=== PATIENT | male | born 2000 | race Caucasian/White ===

== ENCOUNTER 2024-01-31 10:22 | Outpatient (REF) | payer BC, SELFPAY ==
[2024-01-31 17:01] LABS: CT PCR NOT DETECTED (Not Detect.); NG PCR NOT DETECTED (Not Detect.)
== END 2024-01-31 10:23 | disposition home or self-care (01) ==
LOC: HO.LNP 10:22
PROVIDERS: PCP Physician Assistant; Visit Provider Physician Assistant
DX: Z00.00 Encounter for general adult medical examination without abnormal findings (principal); Z13.39 Encounter for screening examination for other mental health and behavioral disorders; Z20.2 Contact with and (suspected) exposure to infections with a predominantly sexual mode of transmission
CPT/HCPCS: 87491; 87591; 96127

== ENCOUNTER 2024-01-31 10:22 | Outpatient (AMB) | payer BC, SELFPAY ==
--- NOTE | 2024-01-31 10:07 | MHC.PC.OV ---
Vital Signs 01/31/24 10:32 Height 6 ft 0.05 in Weight 232 lb 4 oz BMI 31.5 BP 126/68 Blood Pressure Location Rt brachial Position Sitting Respiration 16 Pulse 87 Pulse Source Pulse Oximeter Temp 98.2 F Temp Source Oral Pulse Oximetry (%) 97 Oxygen Delivery Method Room Air Intake Visit Reasons: Establish Care Intake Note: New patient visit Floor Polisher Required: No Allergies No Known Allergies Allergy (Verified 01/31/24 10:30) Medication List - Last Reconciled 01/31/24 by Leticia Coto PA-C No Known Home Meds Tobacco use date assessed: 01/31/24 Dental Screening Dental Screen Date: 01/31/24 Did you have a dental visit in the last 12 months?: Yes Did you have a dental problem in the last 6 months where you did not have access to dental care?: No Was dental information given to patient?: Patient has dentist HPI Establish Care HPI Details Patient is a 23-year-old male who presents today to establish care. He was last seen by pediatrics 4 years ago. He denies any significant pmhx. He states he does not take medications. He does request STD screening. He is asymptomatic. 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 [employer] Social History (Updated 01/31/24 @ 10:10 by Kellie Elizabeth CMA) Housing: House Patient Tobacco Use Status: Current everyday Tobacco user (Tobacco pouches) e-Cigarette/Vaping Use: Never Used Second Hand Smoke Exposure: No service: No Current occupational status: employed Current occupation: [employer] Current occupational exposures/hazards: No Cognitive needs: No Hearing needs: No Vision needs: Yes (contact lenses) Questionnaire Thrive Questionnaire Date Thrive assessed: 01/31/24 I am a: Patient What is your living situation today?: I have a steady place to live Within the past 12 months, did the food you bought not last and you didn't have the money to get more?: Never true Within the past 12 months, did you worry whether your food would run out before you got money to buy more?: Never true Do you have trouble paying for medicines?: No Do you have trouble getting transportation to medical appointments?: No Do you have trouble paying your heating and electricity bill?: No Do you have trouble taking care of your child, family member or friend?: No Do you have trouble with day-to-day activities such as bathing, preparing meals, shopping, managing finances, etc.?: No Are you currently unemployed and looking for a job?: No Are you interested in more education?: Yes Please select the resources that you would like help with: None Currently or been in a relationship where the following occur: No concerns reported THRIVE Score: 0 AUDIT C Alcohol Use Questionnaire (AUDIT-C) 1. How often do you have a drink containing alcohol?: 2-3 times a week 2. How many drinks containing alcohol do you have on a typical day when you are drinking?: 1 or 2 3. How often do you have six or more drinks on one occasion?: Less than monthly Total Score: 4 JOAQUIN-7 AMB Questionnaire JOAQUIN-7 Date JOAQUIN - 7 assessed: 01/31/24 Feeling nervous, anxious, or on edge: 0 = Not at all Not being able to stop or control worryin = Not at all Worrying too much about different things: 0 = Not at all Trouble relaxin = Not at all Being so restless that it is hard to sit still: 0 = Not at all Feeling afraid as if something awful might happen: 0 = Not at all Source: Developed by Drs. Freddie Gaffney, Stephany Carbajal, Deonte Maurer and colleagues, with an educational nicho from [employer]. JOAQUIN-7 Assessment Billing JOAQUIN-7 Assessment Tool: JOAQUIN-7 Assessment 25569 Physical exam (Primary Care) Vital Signs: Last Vital Signs Temp 98.2 F 01/31/24 10:32 Pulse 87 01/31/24 10:32 Resp 16 01/31/24 10:32 BP 126/68 01/31/24 10:32 Pulse Ox 97 01/31/24 10:32 Oxygen Delivery Method Room Air 01/31/24 10:32 BMI result Body Mass Index 31.5 Tobacco/Smoking Status: Tobacco use Status Tobacco use date assessed 01/31/24 01/31/24 10:11 Patient Tobacco Use Status Never used Tobacco 01/31/24 10:11 e-Cigarette/Vaping Use Never Used 01/31/24 10:11 Thrive Assessment: Date of Thrive Assessment Date Thrive assessed 10/09/24 10/09/24 10:11 Currently or been in a relationship where the following occur: No concerns reported Const Orientation/consciousness: patient oriented x3 HENMT Ears: hearing grossly normal bilaterally and TM's normal bilaterally General nose exam: No nasal polyps present Face and sinus: Yes sinuses nontender Mouth: Normal oral and palatal mucosa present Eyes Pupils: Equal, round and reactive pupils present EOM: EOMs intact bilaterally Neck Neck: Yes full ROM and Yes no lymphadenopathy Thyroid: Thyroid normal Chest Chest palpation & inspection: normal inspection of the chest Resp Auscultation: clear to auscultation bilaterally Cardio Rate: regular rate Rhythm: regular rhythm Heart sounds: S1 normal heart sound present and S2 normal heart sound present Peripheral pulses: Peripheral pulses 2+ throughout GI Other: Soft, nontender Auscultation: normal bowel sounds Rectal Exam - Male: Yes deferred General: Yes no CVA tenderness Back/Spine/Pelvis Other: Nontender Back: no CVA tenderness Skin General skin exam: no rashes or lesions noted Neuro General: patient oriented x3, gait normal, CN's II-XI intact bilaterally and deep tendon reflexes 2+ bilaterally Cranial nerves: Yes Equal, round and reactive pupils present Motor exam (neuro): 5/5 motor strength present throughout Sensory Exam: double simultaneous stimulation for sensation normal Coordination: [id number] test normal and Romberg test negative Extrem General: Yes normal to inspection and Yes full ROM Psych Affect: normal affect Attitude: cooperative Thought process: Normal thought process present Thought content: Normal thought content present Insight: Good insight present (Psych) Judgement: Good judgement present (Psych) Coding Level of Care Code New Pt Prev Care 18-39yr(03626 Diagnoses Routine general medical examination at a health care facility Z00.00 Additional Codes JOAQUIN-7 Assessment Billing - JOAQUIN-7 Assessment Tool: JOAQUIN-7 Assessment 06631 ([id number]) Assessment & Plan Assessment & Plan (1) Routine general medical examination at a health care facility: Code(s): Z00.00 - Encounter for general adult medical examination without abnormal findings Plan: hm reviewed labs ordered std testing ordered f/u prn pt understands and agrees with plan Orders: Orders Complete Blood Count Auto Diff Today Z00.00 - Encounter for general adult medical examination without abnormal findings, Z11.3 - Encounter for screening for infections with a predominantly sexual mode of transmission, Z13.220 - Encounter for screening for lipoid disorders Comprehensive [place]. Panel Fast Today Z00.00 - Encounter for general adult medical examination without abnormal findings, Z11.3 - Encounter for screening for infections with a predominantly sexual mode of transmission, Z13.220 - Encounter for screening for lipoid disorders Lipid Panel Today Z00.00 - Encounter for general adult medical examination without abnormal findings, Z11.3 - Encounter for screening for infections with a predominantly sexual mode of transmission, Z13.220 - Encounter for screening for lipoid disorders TSH reflex Free T4 Today Z00.00 - Encounter for general adult medical examination without abnormal findings, Z11.3 - Encounter for screening for infections with a predominantly sexual mode of transmission, Z13.220 - Encounter for screening for lipoid disorders HIV Ab/Ag Today Z00.00 - Encounter for general adult medical examination without abnormal findings, Z11.3 - Encounter for screening for infections with a predominantly sexual mode of transmission, Z13.220 - Encounter for screening for lipoid disorders, Z20.2 - Contact with and (suspected) exposure to infections with a predominantly sexual mode of transmission CT NG by PCR Today Z00.00 - Encounter for general adult medical examination without abnormal findings, Z11.3 - Encounter for screening for infections with a predominantly sexual mode of transmission, Z13.220 - Encounter for screening for lipoid disorders, Z20.2 - Contact with and (suspected) exposure to infections with a predominantly sexual mode of transmission Hepatitis C Antibody Today Z00.00 - Encounter for general adult medical examination without abnormal findings, Z11.3 - Encounter for screening for infections with a predominantly sexual mode of transmission, Z13.220 - Encounter for screening for lipoid disorders, Z20.2 - Contact with and (suspected) exposure to infections with a predominantly sexual mode of transmission Syphilis Screen Today Z00.00 - Encounter for general adult medical examination without abnormal findings, Z11.3 - Encounter for screening for infections with a predominantly sexual mode of transmission, Z13.220 - Encounter for screening for lipoid disorders, Z20.2 - Contact with and (suspected) exposure to infections with a predominantly sexual mode of transmission
[2024-01-31 10:32] VITALS: BP 126/68; PULSE 87; RESP 16; TEMP 36.8; O2SAT 97; BMI 31.5
== END 2024-01-31 11:00 | disposition home or self-care (01) ==
PROVIDERS: PCP Physician Assistant; Visit Provider Physician Assistant
DX: Z00.00 Encounter for general adult medical examination without abnormal findings (principal)

== ENCOUNTER 2024-07-31 10:33 | Outpatient (AMB) | payer OTHER, SELFPAY ==
--- NOTE | 2024-07-31 10:42 | MHC.PC.OV ---
Vital Signs 07/31/24 10:44 Height 6 ft 0.05 in Weight 236 lb 8 oz BMI 32.0 BP 104/74 Blood Pressure Location Rt brachial Position Sitting Respiration 16 Pulse 84 Pulse Source Pulse Oximeter Pulse Oximetry (%) 96 Oxygen Delivery Method Room Air Intake Visit Reasons: Heart issues Intake Note: Discuss heart concern. Was playing volley ball this weekend and heart rate reached 205. Was feeling fatigued. Pattern Chart Writer Required: No Allergies No Known Allergies Allergy (Verified 01/31/24 10:30) Tobacco use date assessed: 07/31/24 Dental Screening Dental Screen Date: 01/31/24 HPI Heart issues HPI Details Patient is a 24-year-old male who presents today with concerns regarding his heart. He states this weekend he was playing volleyball and his heart rate was up to 205. He states that he felt a lot of chest pressure, shortness a breath and fatigue when that happened. He states that he was wearing his Apple watch and looked at it and it had a dangerously high heart rate. He states it has never been that high before. It did come down with time and rest but states that it took a few minutes. He is concerned because his grandfather at the age of 32 from an PR. he states it just felt very weird to him and it concerned him that he was so tired for the following few hours and the next day. The fatigue was worsened with exertion. He did not lose consciousness but did feel a little lightheaded with it. No nausea. He states that he was obviously sweaty from the game but did not notice a change in this. No leg swelling. Mother had PR at age of 50, Paternal grandfather passed at 32 from an PR. 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 1. Little interest or pleasure in doing things: not at all 2. Feeling down, depressed, or hopeless: not at all 3. Trouble falling or staying asleep, or sleeping too much: not at all 4. Feeling tired or having little energy: not at all 5. Poor appetite or overeating: not at all 6. Feeling bad about yourself - or that you are a failure or have let yourself or your family down: not at all 7. Trouble concentrating on things, such as reading the newspaper or watching television: not at all 8. Moving or speaking so slowly that other people could have noticed. Or the opposite - being so fidgety or restless that you have been moving around a lot more than usual: not at all 9. Thoughts that you would be better off or of hurting yourself in some way: not at all Total score: 0 Depression Screening Interpretation: Negative Depression Screening Done: Yes 92494 - PHQ-9 Billing: Yes Source: Developed by Drs. Freddie Gaffney, Stephany Carbajal, Deonte Maurer and colleagues, with an educational nicho from [employer]. Thrive Questionnaire Date Thrive assessed: 07/31/24 I am a: Patient What is your living situation today?: I have a steady place to live Within the past 12 months, did the food you bought not last and you didn't have the money to get more?: Never true Within the past 12 months, did you worry whether your food would run out before you got money to buy more?: Never true Do you have trouble paying for medicines?: No Do you have trouble getting transportation to medical appointments?: No Do you have trouble paying your heating and electricity bill?: No Do you have trouble taking care of your child, family member or friend?: No Do you have trouble with day-to-day activities such as bathing, preparing meals, shopping, managing finances, etc.?: No Are you currently unemployed and looking for a job?: No Are you interested in more education?: No Please select the resources that you would like help with: None Currently or been in a relationship where the following occur: No concerns reported THRIVE Score: 0 AUDIT C Alcohol Use Questionnaire (AUDIT-C) 1. How often do you have a drink containing alcohol?: 2-4 times a month 2. How many drinks containing alcohol do you have on a typical day when you are drinking?: 3 or 4 3. How often do you have six or more drinks on one occasion?: Less than monthly Total Score: 4 Score Reviewed/Action Taken: Yes JOAQUIN-7 AMB Questionnaire JOAQUIN-7 Date JOAQUIN - 7 assessed: 07/31/24 Feeling nervous, anxious, or on edge: 0 = Not at all Not being able to stop or control worryin = Not at all Worrying too much about different things: 0 = Not at all Trouble relaxin = Not at all Being so restless that it is hard to sit still: 0 = Not at all Becoming easily annoyed or irritable: 0 = Not at all Feeling afraid as if something awful might happen: 0 = Not at all Total JOAQUIN-7 score (0-4 normal; 5-9 mild; 10-14 moderate; 15-21 severe): 0 Source: Developed by Drs. Freddie Gaffney, Stephany Carbajal, Deonte Maurer and colleagues, with an educational nicho from [employer]. JOAQUIN-7 Assessment Billing JOAQUIN-7 Assessment Tool: JOAQUIN-7 Assessment 43551 Physical exam (Primary Care) Vital Signs: Last Vital Signs Pulse 84 07/31/24 10:44 Resp 16 07/31/24 10:44 BP 104/74 07/31/24 10:44 Pulse Ox 96 07/31/24 10:44 Oxygen Delivery Method Room Air 07/31/24 10:44 BMI result Body Mass Index 32.0 Tobacco/Smoking Status: Tobacco use Status Tobacco use date assessed 07/31/24 07/31/24 10:59 Patient Tobacco Use Status Current everyday Tobacco ( 07/31/24 10:58 Tobacco pouches) e-Cigarette/Vaping Use Never Used 07/31/24 10:58 PHQ-9: PHQ-9 Score PHQ-9: Total score 0 07/31/24 10:59 Depression Screening Interpretation: Negative Thrive Assessment: Date of Thrive Assessment Date Thrive assessed 07/31/24 07/31/24 10:59 Currently or been in a relationship where the following occur: No concerns reported Const Orientation/consciousness: patient oriented x3 HENMT Ears: hearing grossly normal bilaterally Neck Thyroid: Thyroid normal Lymphatic: no lymphadenopathy noted Resp Auscultation: clear to auscultation bilaterally Cardio Rate: regular rate Rhythm: regular rhythm Heart sounds: S1 normal heart sound present and S2 normal heart sound present GI Inspection: Yes normal to inspection Palpation (GI): Soft to palpation and Other GI palpation findings present (nontender, no cva tenderness) Auscultation: normoactive bowel sounds Rectal Exam - Male: Yes deferred Skin General skin exam: no rashes or lesions noted Neuro General: patient oriented x3, gait normal and no focal motor deficits Office Procedures EKG Details: As listed and plan [id number], Complete Coding Level of Care Code Est Pt Level 4 (60092) Complex EM visit Add On G2211 Diagnoses Chest pressure R07.89 Family history of early CAD Z82.49 CPT Codes EKG - CPT: 87513-Hpsgtmrptxuhwyvvp, Complete ([id number]) Additional Codes JOAQUIN-7 Assessment Billing - JOAQUIN-7 Assessment Tool: JOAQUIN-7 Assessment 81084 ([id number]) PHQ-9 - 35433 - PHQ-9 Billing: Yes ([id number]) Assessment & Plan Assessment & Plan (1) Chest pressure: Code(s): R07.89 - Other chest pain Category: Medical Plan: EKG today in the office is normal sinus rhythm with sinus arrhythmia at a rate of 64 beats per minute with nonspecific STT wave abnormalities. EKG interpreted by myself and Dr. Spencer. Patient is currently asymptomatic. Labs were ordered at his physical in January and advised to complete today including CBC, CMP, TSH and lipid. Chest x-ray ordered. Stress test and echo ordered Warning signs of chest pain that would require emergent medical treatment were reviewed. (2) Family history of early CAD: Code(s): Z82.49 - Family history of ischemic heart disease and other diseases of the circulatory system Category: Medical Plan: As above Orders: Orders XR chest 2V 07/31/24 R07.89 - Other chest pain, Z82.49 - Family history of ischemic heart disease and other diseases of the circulatory system CA stress test 07/31/24 R07.89 - Other chest pain, Z82.49 - Family history of ischemic heart disease and other diseases of the circulatory system CA echo transthoracic complete 07/31/24 R07.89 - Other chest pain, Z82.49 - Family history of ischemic heart disease and other diseases of the circulatory system
[2024-07-31 10:44] VITALS: BP 104/74; PULSE 84; RESP 16; O2SAT 96; BMI 32.0
== END 2024-07-31 11:09 | disposition home or self-care (01) ==
PROVIDERS: PCP Physician Assistant; Visit Provider Physician Assistant
DX: R07.89 Other chest pain (principal); Z82.49 Family history of ischemic heart disease and other diseases of the circulatory system

== ENCOUNTER → 2024-07-31 10:33 | Outpatient (BNVA) | payer BC, SELFPAY | PROVIDERS: PCP Physician Assistant; Visit Provider Physician Assistant | DX: R07.89 Other chest pain (principal); Z82.49 Family history of ischemic heart disease and other diseases of the circulatory system | CPT/HCPCS: 93005; 96127 ==

== ENCOUNTER → 2024-08-30 12:44 | Outpatient (REF) | payer OTHER, SELFPAY ==
--- NOTE | 2024-08-30 12:52 | CA_ITS ---
Transthoracic Echocardiogram Patient (Last, First, Middle): Johnny Villalba, Gender: Male Date of : 2000 Age: 24 Procedure Date: 08/30/2024 Procedure Type: Transthoracic Echocardiogram Location: OP Height: 182.88 cm Weight: 107.05 kg BSA: 2.29 m2 Heart Rate: bpm BP: 104 / 74 mmHg Assistant Dean: TO Referring MD: Leticia Coto PA-C Symptoms: Z82.49 - Family history of ischemic heart disease and other diseases of ... Study Quality: Adequate w contrast ECG Rhythm: Sinus Conclusions: - The left ventricular systolic function is mildly decreased. The calculated ejection fraction is 50% by biplane method. - No obvious valvular pathology seen on this study. Findings Procedure Information Contrast agent, definity, is being given per protocol without apparent complications. Left Ventricle Normal left ventricular cavity size. There is normal left ventricular wall thickness. The left ventricular systolic function is mildly decreased. The calculated ejection fraction is 50% by biplane method. There is no evidence of regional wall motion abnormalities. Diastolic function is normal for age. LV peak GLS -16.5%, mildly reduced. Right Ventricle Normal right ventricular cavity size. There is low normal right ventricular systolic function. Atria Both atria are normal in size. Aortic Valve There is a normal trileaflet aortic valve. There is no aortic valve stenosis. There is no aortic valve regurgitation. Mitral Valve The mitral valve appears normal. There is trace mitral valve regurgitation. There is no mitral valve stenosis. Pulmonic Valve The pulmonic valve is likely normal. Tricuspid Valve There is trace tricuspid valve regurgitation. There is no evidence of pulmonary hypertension. Great Vessels The aorta was not well visualized. The sinuses of valsalva is normal in size. Venous The inferior vena cava is normal in size and collapses greater than 50% with inspiration. Pericardium/Pleural There is no evidence of pericardial effusion. Prior Study Comparison No prior study available for comparison. Recommendations, Care & Conclusions No obvious valvular pathology seen on this study. Measurements 2D Linear Measurements IVSd: 0.89 0.6-0.9/0.6-1.0 cm LVIDd: 5.86 3.9-5.3/4.2-5.9 cm LVIDd Index: 2.56 2.4-3.2/2.2-3.1 cm/m2 LVIDs: 3.95 2.0-3.6 cm LVPWd: 0.78 0.7-1.1 cm LA Diam: 3.70 2.7-3.8/3.0-4.0 cm LAIDs Index: 1.62 1.5-2.3 cm/m2 LV Mass: 234.58 67-162/88-224 g LV Mass Index: 102.44 43-95/49-115 g/m2 LVOT Diam: 2.40 3.0+(-)1.3 cm 2D Systolic Function EF 4C: 46.80 >55% EF 2C: 51.80 >55% EF BiP: 50.00 >55% Mitral Valve MV Pk E: 0.45 MV PK A: 0.30 MV Decel Time: 158.00 E/A: 1.50 E'Lateral: 12.70 E'Medial: 9.36 E/E' Med: 4.80 E/E' Lat: 3.50 PHT: 46.00 MVA PHT: 4.78 Decel [place]: 2.85 Aortic Valve AoV Pk Enzo: 1.00 AoV Mn Enzo: 0.72 AoV VTI: 0.21 AoV Pk Grad: 4.00 Aov Mn Grad: 2.00 ALICIA Cont.VTI: 3.74 LVOT LVOT Pk Enzo: 0.88 LVOT Mn Enzo: 0.64 LVOT VTI: 0.17 LVOT Pk Grad: 3.00 LVOT Mn Grad: 2.00 LVOT Diam: 2.40 LVOT Area: 4.52 Diastolic Function MV Pk E: 0.45 MV Pk A: 0.30 E/A: 1.50 E'Medial: 9.36 E/E' Med: 4.80 E' Laterial: 12.70 E/E' Lat: 3.50 Right Ventricle TAPSE (mm): 19.50 TVS' Enzo: 10.00 Tricuspid Valve RA Press: 3.00 Great Vessels Aorta Sinus of Valsalva: 3.95 2.0-3.5 cm Updated in Other Vendor System with Status of Final Juwan Arredondo MD electronically signed on 08/31/2024 12:42:13 PM with status of Final
== END ==
LOC: HO.CARD 12:44
PROVIDERS: PCP Physician Assistant; Visit Provider Physician Assistant
DX: R07.89 Other chest pain (principal); Z82.49 Family history of ischemic heart disease and other diseases of the circulatory system
CPT/HCPCS: 93306; Q9957

== ENCOUNTER → 2024-08-30 12:52 | Outpatient (BNV) | payer OTHER, SELFPAY | PROVIDERS: PCP Physician Assistant; Visit Provider Internal Medicine | DX: I34.0 Nonrheumatic mitral (valve) insufficiency (principal) | CPT/HCPCS: 93306; 93356 ==

== ENCOUNTER → 2024-09-10 10:17 | Outpatient (REF) | payer OTHER, SELFPAY ==
--- NOTE | 2024-09-10 10:20 | CA_ITS ---
Acquisition Time: 2024-09-10 10:18:53 Total Exercise Time: 00:09:27 Test Indications: Fatigue,Dyspnea CP Medications: Protocol: LAURE Max HR: 179 BPM 92% of Pred: 194 BPM Max BP: 132/64 mmHG Max Work Load: 10.8 METS Exercise stress test with exercise 9 mins 27 secs of Laure Protocol, achieving 92% MPHR, without any anginal symptoms, without any arrytmias, with normotensive response to exercise. Without EKG changes meeting criteria for ischemia. In recovery, pt continued to feel good. Test reviewed with Dr. Mccoy. Referred By: Leticia Coto Electronically Signed By: Scott Putnam
== END ==
LOC: HO.CARD 10:17
PROVIDERS: PCP Physician Assistant; Visit Provider Physician Assistant
DX: R07.89 Other chest pain (principal); Z82.49 Family history of ischemic heart disease and other diseases of the circulatory system
CPT/HCPCS: 93017

== ENCOUNTER → 2024-09-10 10:20 | Outpatient (BNV) | payer OTHER, SELFPAY | PROVIDERS: PCP Physician Assistant | DX: R07.9 Chest pain, unspecified (principal); R06.00 Dyspnea, unspecified; Z82.49 Family history of ischemic heart disease and other diseases of the circulatory system | CPT/HCPCS: 93016; 93018 ==